=== PATIENT | female | born 1990 | race Caucasian/White ===

== ENCOUNTER 2019-07-06 23:06 | Emergency (ER) | payer OTHER ==
[~2019-07-06] VITALS: Ht 170.2 cm; Wt 63.5 kg
[2019-07-06 23:06] VITALS: BP_SYST 145
--- NOTE | 2019-07-06 23:06 | NUR ---
Patient to ER bed 08 to gown for evaluation. Side rails up. Report given to LOLIS Carmona
--- NOTE | 2019-07-06 23:07 | NUR ---
Patient ambulated to front desk worker with unsteady gait was seen on monitor was immediately placed on wheelchair and sent to triage room. Patient was tearful and states " I cannot breathe." speaking full sentences with periods of eye rolling. Reports that she was seen at [facility] and diagnosed with Covid 19. Patient also reports that she recently used Meth this morning. Denies any other drugs or alcohol. Patient states she was discharged and drove herself to the ED from [facility]. No family members present at this time. Patient is sating 100% on RA. Placed in Negative pressure room. Report given to LOLIS Carmona
--- NOTE | 2019-07-06 23:15 | NUR ---
Pt brought in by self. Pt awake, lethargic, oriented. Pt states that she drove here straight from [facility] after visiting them for the same reason. Pt states that she has been [facility] for UTI, then [facility] [place] today where she tested positive for Coronavirus. Pt States that she did methamphetamine today, and may have done "other drugs" according to her own description. Pt states that she has been to [place] and [facility] [place], stating that she doesnt beleive that she has been treated correctly, and needs pain medication and medication to relax. Pt states that she also has some "Chest tightness" and shortness of breath at this time. Pt states that she has multiple complaints "Just wants to be checked out" Pt Denies nausea, vomiting, diarrhea. Pt denies any other medical complaint at this time.
--- NOTE | 2019-07-06 23:30 | NUR ---
ER at bedside examining patient.
--- NOTE | 2019-07-07 00:30 | NUR ---
Pt resting in ED bed. No acute distress.
[2019-07-07 01:30] LABS: BILIRUBIN,URINE NEGATIVE (NEGATIVE); BLOOD, URINE 3+ (NEGATIVE); CLARITY/URINE CLEAR (CLEAR); COLOR,URINE YELLOW (YELLOW); GLUCOSE,URINE NEGATIVE (NEGATIVE); KETONES,URINE TRACE (NEGATIVE); LEUKOCYTE ESTERASE ,URINE TRACE (NEGATIVE); NITRITE, URINE NEGATIVE (NEGATIVE); PROTEIN URINE NEGATIVE (NEGATIVE); UROBILINOGEN,URINE 0.2 (0.2-1.0)
--- NOTE | 2019-07-07 01:30 | NUR ---
Pt denies any new complaint. Resting in ED bed, using telephone to talk to friend waiting outside.
[2019-07-07 01:32] LABS: BASOPHILS # (AUTO) 0.1 K/uL (0.0-0.2); EOSINOPHILS # (AUTO) 0.1 K/uL (0.0-0.4); EOSINOPHILS % (AUTO) 0.9 % (0.0-4.0); HEMOGLOBIN 14.1 g/dL (12.0-16.0); LYMPHOCYTES % (AUTO) 40.6 % (20.5-51.5); MEAN CORPUSCULAR HEMOGLOBIN 29 pg (27-31); MEAN CORPUSCULAR HGB CONC 35 % (32-36); MEAN CORPUSCULAR VOLUME 83 fL (79.0-98.0); MONOCYTES # (AUTO) 0.5 K/uL (0.0-1.0); NEUTROPHILS # (AUTO) 3.8 K/uL (1.8-7.7); NEUTROPHILS % (AUTO) 50.5 % (40.0-70.0); PLATELET COUNT (AUTO) 277 K/uL (130-430); RED BLOOD CELL COUNT(AUTO) 4.82 MIL/uL (4.2-6.2); RED CELL DISTRIBUTION WIDTH 12.7 % (9.0-15.0); WHITE BLOOD COUNT (AUTO) 7.4 K/uL (4.8-10.8)
[2019-07-07 01:39] LABS: BACTERIA,URINE FEW /HPF (None Seen); RBC,URINE 20-50 /HPF (0-3)
[2019-07-07 02:45] LABS: BARBITURATE, URINE NEGATIVE (NEG <=200); BENZODIAZEPINE, URINE NEGATIVE (NEG <=150); CANNABINOID, URINE NEGATIVE (NEG <=50); COCAINE, URINE NEGATIVE (NEG <=150); METHAMPHETAMINES SCREEN,URINE NEGATIVE (NEG <=500); OPIATE, URINE NEGATIVE (NEG <=100); PHENCYCLIDINE SCREEN,URINE NEGATIVE (NEG <=25); UR TRICYCLIC ANTIDEPRESSANTS NEGATIVE (NEG <=300); URINE AMPHETAMINE POSITIVE (NEG <=500); URINE METHADONE NEGATIVE (NEG <=200); URINE OXYCODONE SCREEN NEGATIVE (NEG <=100); URINE PROPOXYPHENE SCREEN NEGATIVE (NEG <=300)
--- NOTE | 2019-07-07 03:00 | NUR ---
Pt resting in ED bed, no acute distress.
[2019-07-07 04:00] VITALS: BP_SYST 129
--- NOTE | 2019-07-07 04:00 | NUR ---
Patient given written and verbal discharge instructions and verbalizes understanding. ER MD discussed with patient the results and treatment provided. Patient in stable condition. ID arm band removed. IV catheter removed intact and dressing applied, no active bleeding. Pt has person she claims is her Friend is outside waiting to drive her home. Spoke with Male Friend of patient providing ride, he verified that he is providing a ride home. No RX given. Patient educated on pain management and to follow up with PMD. Pain Scale 0/10. Opportunity for questions provided and answered. Medication side effect fact sheet provided.
--- NOTE | 2019-07-09 14:16 | NUR ---
Patient called for laboratory test results on July 08, 2019, at the time the results were not available. Today, patient was called x 3,to be notified about her COVID-19 test results, but received a message from the phone saying: "The person you are trying to reach is not able to receive your call". Patient COVID-19 Laboratory test results are "Not Detected".
== END 2019-07-07 04:00 | disposition home or self-care (01) ==
LOC: SED 23:06 → EEVIPCON 23:06 → SED 07-07 04:00
DX: R06.00 Dyspnea, unspecified (principal); F15.90 Other stimulant use, unspecified, uncomplicated; Z20.828 Contact with and (suspected) exposure to other viral communicable diseases
CPT/HCPCS: 36415; 71045; 80307; 81000; 83880; 85025; 87040; 87086; 93005; 99285; U0003

== ENCOUNTER → 2021-08-30 | Emergency (ER) | payer MEDICAID, OTHER ==
[~2021-08-30] VITALS: Ht 167.6 cm; Wt 74.8 kg
[~2021-08-30] MED LIST: NAPR-690 PO
[2021-08-30 11:39] VITALS: BP_SYST 146
== END | disposition home or self-care (01) ==
LOC: SED 10:56
DX: S62.635A Displaced fracture of distal phalanx of left ring finger, initial encounter for closed fracture (principal); Z79.899 Other long term (current) drug therapy; W18.30XA Fall on same level, unspecified, initial encounter; Y93.89 Activity, other specified; Y92.89 Other specified places as the place of occurrence of the external cause; Y99.8 Other external cause status
CPT/HCPCS: 99283